=== PATIENT | female | born 1995 | race Caucasian/White ===

== ENCOUNTER → 2019-10-14 12:47 | Outpatient (CLI) | payer OTHER, SELFPAY ==
[2019-10-17 16:07] LABS: Chlamydia By Nucleic Acid AMP Negative (Negative)
[2019-10-18 09:44] LABS: Gonococcus By Nucleic Acid AMP Negative (Negative)
[2019-10-18 09:45] LABS: HPV Reflexed? YES, CHARGE PATIENT
== END ==
PROVIDERS: Referring Provider Nurse Practitioner Family; Visit Provider Nurse Practitioner Family
DX: Z01.419 Encounter for gynecological examination (general) (routine) without abnormal findings (principal)
CPT/HCPCS: 87491; 87591; 87624; 88175; G0145

== ENCOUNTER 2023-07-17 11:28 | Emergency (ER) | payer OTHER, SELFPAY ==
[2023-07-17 11:28] VITALS: BP 135/87; PULSE 84; RESP 16; TEMP 36.2; O2SAT 100; BMI 21.7
--- NOTE | 2023-07-17 11:42 | EX.ED.DYSGE1 ---
HPI History of Present Illness Chief Complaint: Abscess PFSH PFSH Home Medications metronidazole 500 mg tablet 500 mg PO BID #14 tabs 07/17/23 [Rx Last Taken Unknown] Allergy/AdvReac Type Severity Reaction Status Date / Time No Known Allergies Allergy Verified 07/17/23 11:29 Social History Smoking Status: Never smoker EXAM Physical Exam Const Vital Signs: 07/17/23 11:28 Temperature 97.2 F L Temperature Source Temporal Pulse Rate 84 Respiratory Rate 16 Blood Pressure 135/87 H Blood Pressure Mean 103 Pulse Ox 100 Oxygen Delivery Method [place] [facility] [place] Medical decision making narrative: HISTORY OF PRESENT ILLNESS: 28-year-old female here with concern for pilonidal cyst. Notes symptoms started several days ago. Notes has been draining yellow fluid. Denies any fever. REVIEW OF SYSTEMS: Pertinent positives: Pain, tenderness at the apex of the gluteal fold Pertinent negatives: Fever, chills, abdominal pain PHYSICAL EXAM: Nursing triage notes reviewed, Vital signs reviewed Constitutional: please see mdm HENT: MMM Eyes: Pupils equal round and reactive to light, Extraocular muscles intact Neck: No stridor, no JVD, full neck ROM Lungs: Clear to auscultation, No wheezing or rales. No increased work of breathing, no conversational dyspnea, no accessory muscle use, no nasal flaring. No respiratory distress noted Heart: Regular rate and rhythm, No murmurs, No rubs and No gallops, 2+ distal pulses (radial, femoral, posterior tibial) in all extremities : No CVAT Extremities: No edema Skin: Redness, fluctuance noted to the apex of the gluteal cleft, no crepitus or bullae noted MEDICAL DECISION MAKING: Chief Complaint: Concern for pilonidal cyst External records reviewed: No recent ED visits Factors affecting care: none Social determinants of health: none History obtained from others: none Consults: none [facility] Narrative: Patient was hemodynamically stable, afebrile, nontoxic exam consistent with bilateral cyst. No evidence of necrotizing fasciitis, peritoneal abscess, gluteal abscess. ALL IMAGES (IF OBTAINED) HAVE BEEN PERSONALLY REVIEWED AND INTERPRETED BY MYSELF. Procedure: Incision and Drainage [INSERT - Simple or Complex (multiple abscesses or any loculations)] The procedure was performed by myself. Location: Gluteal cleft Risks and benefits: Risks, benefits, and alternatives were discussed. Questions were sought and answered, and verbal consent provided for the procedure. Anesthesia: 1% lidocaine without epinephrine Procedure Description: I used an 11 blade to make a small incision approxi-1 mm in length with drainage of approxi-1 to 2 cc of yellow fluid along with serosanguineous fluid. The area was deloculated. Patient tolerated procedure well. The patient tolerated the procedure well without complications. Patient was given metronidazole to cover broad spectrum of anaerobic gram-negative bugs given location. Gave general surgery follow-up. The patient and/or family, caregivers express understanding. The patient and/or family, caregivers agrees with the plan. Shared decision making: I will have a discussion with the patient and or visitors regarding risk/benefits of further testing or admission. They will be made aware of of the risk/benefits inherent in this decision they will be given the opportunity to voice understanding. Total critical care time today provided was at least 0 minutes. This excludes separately billable procedures. Critical care time (if documented) is secondary to the patient having high probability of clinically significant/life threatening deterioration in the patient's condition which required my urgent intervention. Impression: 1. Pilonidal cyst Dispo: Discharge Discharge Plan Triage Chief Complaint: Abscess ED Provider: Osmel Castillo Dx/Rx/DC Orders Clinical Impression: Pilonidal cyst Instructions: ED Cyst Pilonidal Infected IandD Prescriptions: New metronidazole 500 mg tablet 500 mg PO BID Qty: 14 0RF Primary Care Provider: Care Physician,No Primary Referrals: Amanuel Acevedo MD [Med Staff - Active Staff] - Karissa Dong MD [Med Staff - Active Staff] - Care Physician,No Primary [Primary Care Provider] - Activity Restrictions/Additional Instructions: Thank you for trusting us with your care today! Please take Tylenol (2 pills, 650 mg), ibuprofen (2 pills, 400 mg) every 6 hours as needed for pain and fever control. Please take antibiotics as prescribed. Please finish entire course. Please use warm compresses to encourage more drainage. Please return to the emergency department if your symptoms change or worsen. Specifically develop worsening pain and redness, if you develop vomiting, if you feel more ill look pale or pass out. Please follow with your primary care physician for further outpatient evaluation and management. Disposition Disposition: Home, Self Care
[2023-07-17] MEDS: Lidocaine 1% (20 ml mdv) 20 ML Vial 5 ML INFILT (13:21)
== END 2023-07-17 13:24 | disposition home or self-care (01) ==
PROVIDERS: Emergency Provider Emergency Medicine; Visit Provider Emergency Medicine
DX: L05.91 Pilonidal cyst without abscess (principal)
CPT/HCPCS: 10080; 99282